=== PATIENT | male | born 1950 | race Caucasian/White ===

== ENCOUNTER 2018-03-18 12:28 | Emergency (ER) | payer MEDICARE, MEDICAID ==
[~2018-03-18] VITALS: Ht 175.3 cm; Wt 77.0 kg
[2018-03-18 16:13] VITALS: BP 125/82
== END 2018-03-18 16:15 | disposition home or self-care (01) ==
LOC: ER 13:55
DX: S40.012A Contusion of left shoulder, initial encounter (principal); M25.512 Pain in left shoulder; M25.532 Pain in left wrist; W19.XXXA Unspecified fall, initial encounter; I10 Essential (primary) hypertension; M19.012 Primary osteoarthritis, left shoulder
CPT/HCPCS: 73030; 73110; 99284; A4565

== ENCOUNTER 2019-07-03 21:14 | Emergency (ER) | payer MEDICARE, MEDICAID ==
[~2019-07-03] VITALS: Ht 172.7 cm; Wt 90.0 kg
[2019-07-03] MEDS ORDERED: TETANUS, DIPHTHERIA, PERTUSSIS VAC/PF 0.5ML (>7YR OLD) IM ONE (23:45)
[2019-07-03] MEDS ORDERED: BACITRACIN ZINC OINT UDPKT TOP ONE (23:45)
[2019-07-03] MEDS ORDERED: LIDOCAINE HCL/PF 1% 10 MG/ML 5ML VIAL IJ ONE (23:45)
[2019-07-04] MEDS ORDERED: ACETAMINOPHEN 325MG TABLET PO ONE (03:15)
[2019-07-04 04:17] VITALS: BP 127/90
== END 2019-07-04 06:08 | disposition home or self-care (01) ==
LOC: ER 21:14
DX: S01.511A Laceration without foreign body of lip, initial encounter (principal); S02.82XA Fracture of other specified skull and facial bones, left side, initial encounter for closed fracture; Y08.89XA Assault by other specified means, initial encounter; Y93.89 Activity, other specified
CPT/HCPCS: 12013; 70450; 70486; 99284; J3490

== ENCOUNTER 2019-07-12 11:05 | Emergency (ER) | payer MEDICARE, MEDICAID ==
[~2019-07-12] VITALS: Ht 188 cm; Wt 90.0 kg
[2019-07-12 11:30] VITALS: BP 146/100
== END 2019-07-12 15:38 | disposition home or self-care (01) ==
LOC: ER 11:32
DX: S01.511D Laceration without foreign body of lip, subsequent encounter (principal); X58.XXXD Exposure to other specified factors, subsequent encounter; I10 Essential (primary) hypertension; F12.10 Cannabis abuse, uncomplicated
CPT/HCPCS: 99281

== ENCOUNTER 2019-11-11 13:16 | Emergency (ER) | payer MEDICARE, MEDICAID ==
[~2019-11-11] VITALS: Ht 188 cm; Wt 92.0 kg
[2019-11-11 17:32] VITALS: BP 155/90
== END 2019-11-11 17:35 | disposition home or self-care (01) ==
LOC: ER 13:16
DX: S22.32XA Fracture of one rib, left side, initial encounter for closed fracture (principal); S27.9XXA Injury of unspecified intrathoracic organ, initial encounter; J06.9 Acute upper respiratory infection, unspecified; S09.8XXA Other specified injuries of head, initial encounter; F17.200 Nicotine dependence, unspecified, uncomplicated; I10 Essential (primary) hypertension; M19.90 Unspecified osteoarthritis, unspecified site; W06.XXXA Fall from bed, initial encounter; Y93.9 Activity, unspecified; Y92.9 Unspecified place or not applicable
CPT/HCPCS: 71101; 99284

== ENCOUNTER 2019-11-19 09:14 | Emergency (ER) | payer MEDICARE, MEDICAID ==
[~2019-11-19] VITALS: Ht 182.9 cm; Wt 91.0 kg
[2019-11-19 10:33] VITALS: BP 150/86
== END 2019-11-19 10:30 | disposition home or self-care (01) ==
LOC: ER 09:14
DX: Z02.79 Encounter for issue of other medical certificate (principal); I10 Essential (primary) hypertension
CPT/HCPCS: 99281

== ENCOUNTER 2021-11-23 08:04 | Emergency (ER) | payer MEDICARE, MEDICAID ==
[~2021-11-23] VITALS: Ht 182.9 cm; Wt 91.0 kg
[2021-11-23] MEDS ORDERED: amlodipine (08:08)
[2021-11-23 08:57] LABS: HEMATOCRIT. 38.6 % (42.0-52.0); HEMOGLOBIN. 13.2 g/dL (14.0-18.0); MEAN CORPUSCULAR HEMOGLOBIN 29.6 pg (28.0-32.0); MEAN CORPUSCULAR VOLUME 86.5 fL (80.0-94.0); MEAN PLATELET VOLUME 7.3 fl (7.4-10.4); PLATELET 323 x1000/uL (130-400); RED BLOOD CELL COUNT 4.46 mill/uL (4.7-6.1); RED CELL DISTRIBUTION WIDTH 15.7 % (11.6-14.6)
[2021-11-23] MEDS ORDERED: SODIUM CHLORIDE 0.9% 500 ML IV ONE (09:00)
[2021-11-23 09:10] LABS: INR 1.1; PARTIAL THROMBOPLASTIN TIME 28.5 sec (23.4-31.0); PROTHROMBIN TIME 11.6 sec (9.6-11.0)
[2021-11-23 09:48] LABS: PLATELET ESTIMATE NORMAL
[2021-11-23] MEDS ORDERED: OXYMETAZOLINE HCL NASAL SPRAY 15ML BOTHNSTRLS STA (10:19)
[2021-11-23 11:20] VITALS: BP 122/75
== END 2021-11-23 11:25 | disposition home or self-care (01) ==
LOC: ER 08:04
DX: R04.0 Epistaxis (principal); I10 Essential (primary) hypertension; F12.10 Cannabis abuse, uncomplicated; Z86.011 Personal history of benign neoplasm of the brain; Z98.890 Other specified postprocedural states
CPT/HCPCS: 36415; 80048; 85025; 85610; 85730; 86850; 86900; 86901; 93005; 96360; 99284; J7040